=== PATIENT | female | born 1985 | race African-American/Black ===

== ENCOUNTER 2025-09-08 09:00 | Emergency (ER) | payer OTHER ==
[~2025-09-08] VITALS: Ht 165.1 cm; Wt 107.7 kg
[~2025-09-08 09:00] MED LIST: SERT-158 PO
[2025-09-08 09:02] VITALS: TEMP 97.9
[2025-09-08] MEDS ORDERED: AEC81 PO (09:12)
[2025-09-08] MEDS ORDERED: PREN-18 PO (09:12)
[2025-09-08 09:50] LABS: PLATELET COUNT (AUTO) 246 K/uL (150-450); RED BLOOD CELL COUNT(AUTO) 4.15 MIL/uL (4.00-5.20); RED CELL DISTRIBUTION WIDTH 13.4 % (11.5-14.5); WHITE BLOOD COUNT (AUTO) 6.5 K/uL (4.5-11.0)
[2025-09-08 09:52] LABS: APPEARANCE,URINE CLEAR (CLEAR); GLUCOSE, URINE (UA) >=1000 mg/dL (NEGATIVE); LEUKOCYTE ESTERASE ,URINE NEGATIVE (NEGATIVE); NITRATE,URINE NEGATIVE (NEGATIVE); OCCULT BLOOD,URINE NEGATIVE (NEGATIVE); SPECIFIC GRAVITIY, URINE 1.042 (1.003-1.030)
[2025-09-08 09:53] LABS: CALCIUM, TOTAL 9.3 mg/dL (8.8-10.5); CREATININE 0.50 mg/dL (0.60-1.30); GLOMERULAR FILTR. RATE CALC > 60 mL/min (>60); GLUCOSE,RANDOM 247 mg/dL (70-110); SODIUM SERUM 135 mmol/L (136-145); UREA NITROGEN, BLOOD 12 mg/dL (7-18)
[2025-09-08 10:10] LABS: SQUAMOUS EPITHELIAL CELL,UR None Seen /LPF (None Seen)
[2025-09-08 13:50] VITALS: BP 122/73; PULSE 94; RESP 22; O2SAT 99
== END 2025-09-08 14:10 | disposition home or self-care (01) ==
LOC: EMS 09:01
DX: O46.92 Antepartum hemorrhage, unspecified, second trimester (principal); F41.9 Anxiety disorder, unspecified; F32.A Depression, unspecified; N89.8 Other specified noninflammatory disorders of vagina; Z79.899 Other long term (current) drug therapy; Z3A.27 27 weeks gestation of pregnancy
CPT/HCPCS: 76805; 80048; 81001; 84702; 85025; 86901; 99284